=== PATIENT | male | born 1985 | race Caucasian/White ===

== ENCOUNTER 2016-03-18 14:40 | Emergency (ER) | payer BC, OTHER ==
[2016-03-18 15:07] VITALS: TEMP 97.8
[2016-03-18] MEDS: KETOROLAC TROMETHAMINE INJ 30 MG/ML VIAL IM ONE (15:27)
[2016-03-18] MEDS: CYCLOBENZAPRINE HCL 10 MG TAB PO ONE (15:27)
[2016-03-18] MEDS: predniSONE 20 MG TAB PO ONE (15:27)
--- NOTE | 2016-03-18 15:53 | RAD ---
EXAM DESCRIPTION: XR LUMBAR SPINE 2-3 VIEWS CLINICAL HISTORY: rigth l1 pain COMPARISON: None Available. TECHNIQUE: AP/lateral/coned-down lateral FINDINGS: There is good alignment of the lumbar spine. There is no fracture or bone lesion. There are no significant degenerative changes observed. Diffuse osteopenia is observed. IMPRESSION: Osteopenia is observed. Exam is otherwise unremarkable. Electronically signed by: Yifan Guy MD 03/18/2016 15:51
--- NOTE | 2016-03-18 16:21 | ED.PDOC ---
History of Present Illness - General Chief Complaint: Back Pain or Injury Stated Complaint: low back pain Time Seen by Provider: 03/18/16 15:20 Source: patient Exam Limitations: no limitations - History of Present Illness Initial Comments: the patient is a 31-year-old male that was bending over to pick something up when he felt a catch started in his back. It is adjacent to L1 and L2 on the right. He had this issue 3 months ago. He was treated with steroids and a muscle relaxer and has gradually let up. No trauma. No gross deformity. Mild transient radiation down the right leg. No other back problems in the past. Timing/Duration: 4-6 hours Severity: moderate Improving Factors: immobilization Worsening Factors: movement Associated Symptoms: denies symptoms Allergies/Adverse Reactions: Allergies NO KNOWN ALLERGY Allergy (Verified 03/18/16 15:06) Home Medications: Ambulatory Orders Mftncmoqusbgp-Rycc-Jatsdyutnm [Fioricet] 1 ea PO Q8H PRN #21 tab 03/18/16 Cyclobenzaprine HCl [Flexeril] 5 mg PO TID PRN #30 tab 03/18/16 predniSONE [Prednisone] 20 mg PO DAILY #7 tab 03/18/16 Review of Systems - Review of Systems Constitutional: States: no symptoms reported EENTM: States: no symptoms reported Respiratory: States: no symptoms reported Cardiology: States: no symptoms reported Gastrointestinal/Abdominal: States: no symptoms reported Genitourinary: States: no symptoms reported Musculoskeletal: States: back pain Skin: States: no symptoms reported Neurological: States: no symptoms reported Endocrine: States: no symptoms reported All other Systems: No Change from Baseline Past Medical History (General) - Patient Medical History Hx Seizures: No Hx Stroke: No Hx Dementia: No Hx Asthma: No Hx of COPD: No Hx Cardiac Disorders: No Hx Congestive Heart Failure: No Hx Pacemaker: No Hx Hypertension: No Hx Thyroid Disease: No Hx Diabetes: No Hx Gastroesophageal Reflux: No Hx Renal Disease: No Hx Cancer: No Hx of HIV: No Hx Hepatitis C: No Hx MRSA: No Surgical History: tonsillectomy - Vaccination History Hx Tetanus, Diphtheria Vaccination: No Hx Influenza Vaccination: No Hx Pneumococcal Vaccination: No - Social History Hx Tobacco Use: Yes Hx Alcohol Use: Yes - occasional Hx Depression: Yes - recent history - Activities of Daily Living Hospice Agency (if applicable):: None - Female History Patient is a Female of Child Bearing Age (10 -59 yrs old): No Patient : No Family Medical History - Family History Father Family History: No Known Living Status: Still Living Physical Exam - Physical Exam General Appearance: Alert, Comfortable, No apparent distress Eye Exam: bilateral normal Ears, Nose, Throat: normal ENT inspection, normal pharynx Neck: full range of motion, normal inspection Respiratory: chest non-tender, lungs clear, normal breath sounds, no respiratory distress, no accessory muscle use Cardiovascular/Chest: normal peripheral pulses, regular rate, rhythm, no edema Peripheral Pulses: radial,right: 2+, radial,left: 2+ Gastrointestinal/Abdominal: non tender, soft Rectal Exam: deferred Back Exam: no vertebral tenderness, other - ee history of present illness Extremity: normal range of motion, non-tender, normal inspection, no pedal edema , normal capillary refill Neurologic: alert, normal mood/affect, oriented x 3 Skin Exam: normal color Comments: Vital Signs - 24 hr 03/18/16 14:55 Temperature 97.8 F Pulse Rate [ 94 H pulse ox] Respiratory 20 Rate Blood Pressure 116/73 [left arm] O2 Sat by Pulse 94 L Oximetry Progress - Progress Progress: 03/18/16 16:19 the patient's 31-year-old male with fairly acute onset lower back pain to the right. X-ray of the lumbar spine is reassuring. The patient was given a dose of an anti-inflammatory as well as a muscle relaxer. He will be written for Flexeril and prednisone as an outpatient. A heat pad and topical icy hot or Biofreeze freeze may also help. He can also see a chiropractor to help with his alignment. Long-term he needs to do exercises such as bicycling or swimming or Pilates to help strengthen his lower back. ER warnings were given for any acute worsening. - Results/Orders Results/Orders: x-ray of the lumbar spine shows osteopenia but no evidence of misalignment or compression fracture. Departure - Departure Clinical Impression: Back pain Qualifiers: Back pain location: low back pain Back pain laterality: right Sciatica presence : with sciatica presence unspecified Qualifier Code: (M54.5) Low back pain Disposition: Discharge to Home or Self Care Condition: Fair Departure Forms: ED Discharge - Pt. Copy, Patient Portal Self Enrollment Instructions: DI for Back Pain With Sciatica Diet: regular diet Activity: increase activity as tolerated Prescriptions: Jijyzzgpnjznb-Eqqd-Niyftresrv [Fioricet] 1 ea PO Q8H PRN #21 tab PRN Reason: Pain Cyclobenzaprine HCl [Flexeril] 5 mg PO TID PRN #30 tab PRN Reason: Muscle Spasms predniSONE [Prednisone] 20 mg PO DAILY #7 tab Home Medications: Ambulatory Orders Rmasignbllkgi-Ltjy-Diybafxtel [Fioricet] 1 ea PO Q8H PRN #21 tab 03/18/16 Cyclobenzaprine HCl [Flexeril] 5 mg PO TID PRN #30 tab 03/18/16 predniSONE [Prednisone] 20 mg PO DAILY #7 tab 03/18/16 Additional Instructions: the patient's 31-year-old male with fairly acute onset lower back pain to the right. X-ray of the lumbar spine is reassuring. The patient was given a dose of an anti-inflammatory as well as a muscle relaxer. He will be written for Flexeril and prednisone as an outpatient. A heat pad and topical icy hot or Biofreeze freeze may also help. He can also see a chiropractor to help with his alignment. Long-term he needs to do exercises such as bicycling or swimming or Pilates to help strengthen his lower back. ER warnings were given for any acute worsening.
[2016-03-18 16:31] VITALS: BP 113/76; O2SAT 96
== END 2016-03-18 16:30 | disposition home or self-care (01) ==
LOC: ER 14:40
DX: M54.5 Low back pain (principal)